=== PATIENT | male | born 1950 | race Caucasian/White ===

== ENCOUNTER 2016-12-06 12:09 | Inpatient (IN) | payer MEDICARE ==
--- NOTE | ~2016-12-06 | CN ---
Consultation Report [facility] [address] [place]. [address] NAME: ROBERTA HOLDEN : 50 STATUS : ADM Letty PAT#: [id number] AGE: 66 ADM/REG DATE : 12/06/16 MR#: [id number] REPORT SERV DATE: 12/07/16 DICTATED BY: DATE: REPORT STATUS : Draft TRANSCRIBED BY: MODL DATE: 12/07/16 NEUROLOGY CONSULTATION DATE OF CONSULTATION: 12/07/2016 REASON FOR CONSULT: Vision difficulties and concern for stroke. HISTORY OF PRESENT ILLNESS: This is a 66-year-old male who presented to [facility] on 12/06/2016 secondary to persistent vision difficulties with the patient having difficulties with left visual field deficit. The patient's symptoms started on 12/03/2016 and since then has remained stable. The patient has had an ophthalmology evaluation with the patient told not to have any retinal issues. The patient otherwise denies any dysarthria, dysphagia, language difficulties, or numbness. The patient denies any focal weakness, but does report gait abnormality secondary to cannot see out of the left side. As a result, the patient keeps on walking into things. The patient does report similar events roughly 1 month ago with the patient was driving down to [place], noticed similar symptoms that lasted several minutes and spontaneously resolved. The patient otherwise denies any recent illness, fever, chills, nausea, vomiting, chest pain, or shortness of breath. The patient has been on chronic blood pressure medication, otherwise, denies taking any other medications at home, does not usually take any aspirin at home. The patient denies any blood pressure medication adjustment or any other medication adjustment. PAST MEDICAL HISTORY: The patient's past medical history is significant for hypertension. The patient denies history of previous stroke, cardiac disease, or known history of diabetes or cholesterol issues. FAMILY HISTORY: Significant for heart disease in both the patient's brother as well as father with the patient's brother noted to have coronary artery disease in his 40s. SOCIAL HISTORY: Denies tobacco or recreational drug usage. The patient, however, does have a history of alcohol usage with the patient drinking roughly 5 to 7 bottles of beers per day. The patient denies any withdrawal type of symptoms with abrupt alcohol cessation. REVIEW OF SYSTEMS: Negative except for those mentioned in the HPI. ALLERGIES: THE PATIENT REPORTS NO KNOWN DRUG ALLERGIES. HOME MEDICATIONS: Consist of benazepril 40 mg p.o. daily. PHYSICAL EXAMINATION: VITAL SIGNS: At the time of evaluation, the patient overnight was noted to have vital signs with T-max of 98.4, heart rate of 54 to 86, respirations of 15 to 26, and blood pressure of 114 to 139 over 69 to 84. Consultation Report [facility] [id number] [place]. [address] NAME: ROBERTA HOLDEN : 50 STATUS : ADM Letty PAT#: [id number] AGE: 66 ADM/REG DATE : 12/06/16 MR#: [id number] REPORT SERV DATE: 12/07/16 DICTATED BY: DATE: REPORT STATUS : Draft TRANSCRIBED BY: MODL DATE: 12/07/16 GENERAL: The patient is well developed, well nourished, in no acute distress. CARDIOVASCULAR: Regular rate and rhythm. No carotid bruits were otherwise auscultated. PULMONARY: Examination was clear to auscultation bilaterally. NEUROLOGICAL: Generally, the patient is alert, oriented to person, place, year, and month. Follows simple and 2-step commands. Intact registration. Mild difficulties with recall. Intact attention span at the time of evaluation. No dysarthria. No aphasia. Cranial nerves 2 through 12, pupils equal, round, and reactive to light. Extraocular eye movement was noted to be intact. The patient was noted to have left visual field deficits in the left eye otherwise symmetrical facial expression and sensation. Midline tongue. Normal palatal movement. Normal hearing. The patient demonstrated 5/5 bilateral upper and lower extremity strength. No pronator drift was otherwise appreciated. Symmetrical sensation bilateral upper extremity, 5/5 bilateral lower extremity strength. Symmetrical sensation bilateral lower extremity. Deep tendon reflex was 1+ throughout. Downgoing toe on bilateral plantar reflexes. Normal rfidtp-fk-guxd examination without ataxia. Normal stable gait and station. LABORATORY STUDIES: Demonstrated white blood cell count of 8.0, hemoglobin of 15.9, hematocrit of 47.5, and platelet count of 215. Chemistry panel, sodium 140, potassium 4.3, chloride 102, bicarb 28, BUN of 19, creatinine of 1.02, glucose of 205, calcium of 8.3, and magnesium of 2.4. Serum cholesterol of 263, HDL of 50, and triglyceride of 450. Folate level of 17.7. Vitamin B12 level of 443. Hemoglobin A1c of 9.2. Serum TSH of 2.69, free T4 of 0.95. Urinalysis demonstrated negative leukocyte esterase, negative nitrite. CT scan of the brain demonstrated hypoattenuation in the right occipital area. Concern for possible subacute stroke with MRI of the brain demonstrated an embolic-appearing right LANG PATH THERAPIST territory stroke with the patient also noted to have involvement in the right basal ganglia in subcortical area and posterior limb of internal capsule. No hemorrhage was otherwise noted. MRA of the head and neck was reviewed, no clear internal carotid artery stenosis was seen; however, the patient was noted to have vertebral artery arthrosclerotic diseases. MRI and MRA report is currently pending. Echocardiogram demonstrated no apical thrombus. IMPRESSION: 1. Right LANG PATH THERAPIST embolic stroke with basal ganglia as well as the posterior limb of internal capsule involvement. MRA of the brain demonstrated vertebral artery atherosclerotic diseases but official report is pending. We will place the patient on increased dosage of aspirin 325 mg p.o. daily as well as addition of Plavix 75 mg p.o. daily. We will continue Lipitor 80 mg p.o. daily for maximum medical therapy. The patient's current NIH stroke scale is 1 with the symptoms started on 12/03/2016, reports the symptom has been stable secondary to the patient's difficulty walking due to vision difficulties/abnormalities. We will obtain PT/OT consultation. Secondary to the patient's vision abnormalities, we are recommending no driving until symptoms improving. 2. Newly diagnosed diabetes. Diabetic education and management as per hospitalist. 3. Dyslipidemia. We will continue Lipitor 80 mg p.o. at bedtime. RECOMMENDATIONS: Consultation Report [address] [place]. [address] NAME: ROBERTA HOLDEN : 50 STATUS : ADM Letty PAT#: [id number] AGE: 66 ADM/REG DATE : 12/06/16 MR#: [id number] REPORT SERV DATE: 12/07/16 DICTATED BY: DATE: REPORT STATUS : Draft TRANSCRIBED BY: RAMSES DATE: 12/07/16 1. PT/OT. 2. Increase aspirin to 325 mg p.o. daily. 3. Plavix 75 mg p.o. daily. 4. Lipitor 80 mg p.o. daily. 5. Diabetes management as per hospitalist. 6. No driving. 7. We will follow up MRA report. [facility]/MODL auri Barbosa MD / [id number] CC: Tonio Bunn M.D.
--- NOTE | ~2016-12-06 | DS ---
Discharge Summary [facility] [address] [place]. [address] NAME: ROBERTA HOLDEN : 50 STATUS : DIS IN PAT#: [id number] AGE: 66 ADM/REG DATE : 12/07/16 MR#: [id number] REPORT SERV DATE: 12/10/16 DICTATED BY: DATE: REPORT STATUS : Draft TRANSCRIBED BY: MODL DATE: 12/08/16 ADMISSION DATE: 12/06/2016 DISCHARGE DATE: 12/08/2016 DISCHARGE DIAGNOSES: 1. Right posterior cerebral artery embolic stroke. 2. Left-sided hemianopsia related to number one. 3. Hypertension. 4. ETOH abuse. 5. Hyperlipidemia. 6. Diabetes mellitus, type 2 with a hemoglobin A1c of 9.2. CONSULTING PHYSICIANS: Include Dr. Amauri Barbosa with Neurology. DISCHARGE MEDICATIONS: Include aspirin 325 mg p.o. daily, Lipitor 80 mg p.o. at bedtime, Lotensin 40 mg p.o. daily, Plavix 75 mg p.o. daily, multivitamin one tablet p.o. daily, Glucophage 500 mg p.o. b.i.d.. IMAGING: Includes a CT of the brain without contrast showed no acute intracranial abnormality. It did show some chronic microvascular white matter ischemic changes and minimal old lacunar infarcts and calcific atherosclerosis. Chest x-ray PA and lateral was performed which was normal. An MRI of the brain was performed that demonstrated a small seven millimeter acute ischemic infarct in the right thalamus as well as a cluster of small two to five millimeter acute ischemic infarcts in the medial right occipital lobe. These are in the area of the visual cortex and probably account for the reported visual disturbances. It also noted a small old lacunar infarct in the left thalamus and small old infarct in the inferior left cerebellar hemisphere. It also noted mild to moderate deep white matter chronic microvascular ischemic changes. An MRI of the head and neck were performed with contrast which showed a short segment of mild irregular atherosclerotic change in the mid right posterior cerebral artery. The [place] of [place] was unremarkable. MRI of the neck did not demonstrate significant atherosclerotic plaque or stenosis in the carotid arteries. There is a probable developmental variant asymmetric small caliber to the V4 segment of the left vertebral artery. Otherwise, the vertebral arteries demonstrated normal caliber and antegrade flow. Transthoracic echocardiogram was performed which showed normal left ventricular systolic function with an estimated ejection fraction of 55% to 60%. mild diastolic dysfunction was noted. Normal right ventricular chamber size and systolic function. No significant valvular regurgitation or stenosis was noted. For full H and P, please refer to Dr. Levi Roche's dictation on 12/06/2016. Please also see Dr. Amauri Barbosa's consultation dictation on 12/07/2016. HOSPITAL COURSE/PROBLEM LIST: Discharge Summary [facility] [address] [place] [address] NAME: ROBERTA HOLDEN : 50 STATUS : DIS IN PAT#: [id number] AGE: 66 ADM/REG DATE : 12/07/16 MR#: [id number] REPORT SERV DATE: 12/10/16 DICTATED BY: DATE: REPORT STATUS : Draft TRANSCRIBED BY: MODL DATE: 12/08/16 1. Right PATIENT AMBASSADOR stroke. I will discharge the patient on aspirin, Plavix, and Lipitor per Dr. Barbosa's recommendations. He had a physical therapy evaluation, though they did not recommend further physical therapy. An OT evaluation cannot be performed today. The patient requested to go home. After discussing this with Dr. Barbosa, we decided that we can set him up for an outpatient occupational therapy evaluation if needed. Hopefully, his left-sided hemianopsia will resolve. No driving at this time. 2. Hypertension. This has been controlled during the patient's hospital stay. I will continue his Lotensin 40 mg p.o. daily that he has been taking for years. 3. ETOH abuse. Alcohol cessation was discussed at length with the patient as well as possible treatment options. The patient states that he will quit drinking, he has done so in the past and has not had a problem. 4. Hyperlipidemia. As mentioned above, I will continue the patient on Lipitor 80 mg p.o. daily. His total cholesterol was 263, HDL cholesterol 50, non-HDL cholesterol 213, cholesterol HDL ratio was 5.3, and triglycerides were 450. Dietary changes were also discussed at length with this patient, who seems receptive to changing his lifestyle and his diet. His agree she is diabetic and they both state that they will start a new diabetic diet together and also exercise. 5. Diabetes mellitus, type 2. This is a new diagnosis for Mr. Holden. His hemoglobin A1c was 9.2. I explained this new diagnosis to Mr. Holden at length as well as reason for metformin therapy as well as lifestyle changes as mentioned above that will help him control his blood sugar. At this time, he does not have a primary care provider. He states that he will get one as soon as possible. I have recommended that he do this within the next week and be seen if possible. I will write him a prescription for metformin 500 mg p.o. b.i.d. this discharge with the discussion of followup lifestyle changes, diet changes, medication adherence, medication reconciliation, took greater than 30 minutes to perform. A[facility]REA/RAMSES Lauro Fuentes NP / [id number] CC: Jody Alvarado MD Hany A. Naggar, MD
--- NOTE | ~2016-12-06 | HP ---
History And Physical [facility] [id number] [place]. [address] NAME: ROBERTA HOLDEN : 50 STATUS : ADM Letty PAT#: [id number] AGE: 66 ADM/REG DATE : 12/06/16 MR#: [id number] REPORT SERV DATE: 12/07/16 DICTATED BY: LEVI BURNS DATE: 12/06/16 REPORT STATUS : Draft TRANSCRIBED BY: RAMSES DATE: 12/06/16 DATE OF ADMISSION: 12/06/2016 CHIEF COMPLAINT: Left visual field loss. HISTORY OF PRESENT ILLNESS: This is a 66-year-old gentleman with medical history significant for hypertension who presented to the hospital with complaints of inability to see, the left visual field of his left eye, which started about three days ago. The patient reports that he was in his usual state of health, suddenly noticed progressive loss of vision of his left eye. The patient went to his primary tile layer helper who did an eye examination and noted that his retina was intact. The ophthalmology advised the patient to come to the hospital for evaluation of a possible stroke. The patient reports that the visual deficit has persisted since the last three days. There are also associated headaches. The headaches are about 3/10 in intensity, diffuse across his head. No associated slurred speech, weakness of any part of his extremities. He also reports associated unsteady gait when he walks if leans towards the left side. He denies any presyncopal palpitation or syncopal episodes. The patient denies any chest pain. No shortness of breath, no wheezing, no cough, no fever, no chills. PAST MEDICAL HISTORY: Hypertension. PAST SURGICAL HISTORY: None. ALLERGIES: NO KNOWN DRUG ALLERGIES. SOCIAL HISTORY: Drinks about four to five bottles of beer a day about four to five times a week. Denies tobacco use or illicit drug use. The patient is currently and lives with his . 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 MEDICATION: Benazepril 40 mg p.o. daily. FAMILY HISTORY: His brother of lung cancer. Father of MD at the age of 72. He has another brother who had coronary artery disease with CABG at the age of 42. REVIEW OF SYSTEMS: NEUROLOGIC: Reports headache. Denies any seizure-like activities. Denies any trauma to the head. HEENT: As per HPI. RESPIRATORY: Denies any cough. No shortness of breath. No wheezes. CARDIOVASCULAR: Denies any chest pain. Denies any palpitations. Denies any presyncopal. ABDOMEN: Denies any abdominal pain. No nausea. No vomiting. No jaundice. : Denies any frequency, urgency, or dysuria. MUSCULOSKELETAL: Denies any joints pain or muscle pain. ENDOCRINE: Denies any heat intolerance, cold intolerance, or excessive weight gain. SKIN: Denies any easy bruising, petechia, or rash. HEMATOLOGY: Denies any lymphadenopathy. Denies any bleeding disorders. History And Physical [address] [address] NAME: ROBERTA HOLDEN : 50 STATUS : ADM Letty PAT#: [id number] AGE: 66 ADM/REG DATE : 12/06/16 MR#: [id number] REPORT SERV DATE: 12/07/16 DICTATED BY: LEVI BURNS DATE: 12/06/16 REPORT STATUS : Draft TRANSCRIBED BY: RAMSES DATE: 12/06/16 PHYSICAL EXAMINATION: VITAL SIGNS: Blood pressure 121/65, temperature 98.6, pulse 67 beats per minute, respiratory rate 18 cycles per minute, saturating 97% on room air. GENERAL: Not in any acute distress. HEENT: Normocephalic, atraumatic. Pupils equal, round, and reactive. Extraocular muscle intact. Loss of vision in the left visual field of the left eye. NECK: Supple. No JVD. CHEST: Equal expansion, nontender. Lungs clear to auscultation bilaterally. No wheezes. No rhonchi. No crackles. CARDIOVASCULAR: Regular rate and rhythm. S1 and S2. No murmurs, no gallops, no rubs. ABDOMEN: Bowel sounds normoactive, soft, nontender. No palpably enlarged organomegaly. EXTREMITIES: No pitting edema. No cyanosis. NEUROLOGIC: Alert and oriented x3. Cranial nerve strength in all extremities 5/5. Normal reflexes. No dysdiadochokinesia. Normal kheyur-qk-enuc test. Normal gait. Negative Romberg sign. LABORATORY DATA: 1. Chemistry: Sodium 140, potassium 4.0, chloride 101, bicarb 30, creatinine 1.10, BUN 21, glucose 277. Calcium 9.1, total protein 7.5, albumin 3.9. Total bilirubin is 0.9, alkaline phosphatase 79, ALT 38, AST 28. 2. Hematology: WBC 9.0, hemoglobin 17.2, hematocrit 51.7, platelets 231. INR 0.9. PT 12.8. 3. Lipid profile: Cholesterol 263, HDL 50, non-HDL 213, triglyceride 415, troponin less than 0.02, TSH 2.69, T4 0.9. 4. CT scan of the brain without contrast impression:. a. No acute intracranial abnormality. b. Chronic microvascular white matter ischemic changes. Minimal old lacunar infarct. Calcific atherosclerosis. SUMMARY: This is a 66-year-old male with medical history significant for hypertension who presented to the hospital with left hemianopsia concerning for possible cerebrovascular accident. ASSESSMENT AND PLAN: 1. Left hemianopsia. Given the patient's presentation and risk factors, there is significant concern for possible CVA as a possible etiology of patient's left hemianopsia. At this time, there is no evidence of active bleed on CT scan of the brain. The patient presented outside the tPA window. We will order an MRI/MRA of the brain, head, and neck. We will order an echocardiogram. We will also order an HbA1c, check the patient's folate and vitamin B12. The patient will be placed on cardiac tele. Neurology will be consulted for expected management. We will start the patient on aspirin, statin, and continue the patient on blood pressure medication. 2. Hypertension: We would restart the patient's blood pressure medication and continue to monitor. 3. Admission status: Observation. Admission disposition: CDU, sent. 4. Code status. Full code. History And Physical [address] [address] NAME: ROBERTA HOLDEN : 50 STATUS : ADM Letty PAT#: [id number] AGE: 66 ADM/REG DATE : 12/06/16 MR#: [id number] REPORT SERV DATE: 12/07/16 DICTATED BY: LEVI BURNS DATE: 12/06/16 REPORT STATUS : Draft TRANSCRIBED BY: MODL DATE: 12/06/16 5. Deep venous thrombosis prophylaxis, heparin subcutaneous. IOO/MODL Levi Burns MD / [id number]
[2016-12-06 11:43] LABS: BASOPHILS 0.7 %; BASOPHILS ABSOLUTE 0.06 10/3/uL (0.0-0.16); EOSINOPHILS 1.9 %; EOSINOPHILS ABSOLUTE 0.17 10/3/uL (0.0-0.53); ER CBC TAT 0 Hrs 05 Mins; HEMATOCRIT 51.7 % (40.0-51.0); HEMOGLOBIN 17.2 g/dL (13.6-17.8); IMMATURE GRANULOCYTES 0.4 %; IMMATURE GRANULOCYTES ABSOLUTE 0.04 10/3/uL (0.0-0.11); LYMPHOCYTES 24.3 %; LYMPHOCYTES ABSOLUTE 2.18 10/3/uL (0.67-4.30); MANUAL DIFF NO %; MEAN CORPUS HGB CONC 33.3 g/dL (32.0-36.0); MEAN CORPUSCULAR HEMOGLOB 31.2 pg (26.0-34.0); MEAN CORPUSCULAR VOLUME 93.8 fL (80-100); MEAN PLATELET VOLUME 10.7 fL (9.2-13.0); MONOCYTES 8.6 %; MONOCYTES ABSOLUTE 0.77 10/3/uL (0.21-1.20); NEUTROPHILS 64.1 %; NEUTROPHILS ABSOLUTE 5.76 10/3/uL (2.02-8.40); PLATELET COUNT 231 10/3/uL (150-400); RBC DISTRIBUTION WIDTH 13.2 % (12.0-16.0); RED CELL COUNT 5.51 10/6/uL (4.7-6.1)
[2016-12-06 11:51] LABS: INTERNATIONAL NORMAL RATI 0.9 UNITS (-); PROTIME (NOT ORD) 12.5 SEC (12.0-14.5)
[2016-12-06 11:57] LABS: A/G RATIO 1.1 (0.7-1.9); ALBUMIN 3.9 G/DL (3.5-5.0); ALKALINE PHOSPHATASE 79 U/L (45-117); BUN (BLOOD UREA NITROGEN) 21 MG/DL (6-23); CALCIUM, SERUM 9.1 MG/DL (8.5-10.4); CHLORIDE, SERUM 101 MMOL/L (96-112); CO2 (CARBON DIOXIDE) 30 MMOL/L (24-34); GFR AFRICAN AMERICAN 81 ML/MIN (>=60); GFR NON AFRICAN AMERICAN 70 ML/MIN (>=60); GLOBULIN 3.6 G/DL (2.5-4.1); GLUCOSE, SERUM 277 MG/DL (60-99); SGOT(AST) 28 U/L (5-40); SGPT(ALT) 38 U/L (5-65); SODIUM, SERUM 140 MMOL/L (135-148); TOTAL BILIRUBIN 0.9 MG/DL (0-1.2); TOTAL PROTEIN 7.5 G/DL (6.0-8.5)
[2016-12-06 13:40] LABS: SED RATE 2 MM/HR (0-15)
[2016-12-06] MEDS ORDERED: LOTE40 PO (14:51)
[2016-12-06 21:57] LABS: CHOL/HDL RATIO(NOT ORDER) 5.3 (0-5); CHOLESTEROL 263 MG/DL (< 200); CPK 70 U/L (0-200); FREE T4 0.95 NG/DL (0.76-1.46); HDL CHOLESTEROL 50 MG/DL (> 39); NON-HDL CHOLESTEROL 213 MG/DL (< 160); PHOSPHORUS, SERUM 2.7 MG/DL (2.5-4.5); TRIGLYCERIDE 450 MG/DL (< 150); TROPONIN I <0.02 NG/ML (<0.05)
[2016-12-06 21:58] LABS: CK-MB 0.8 NG/ML; FOLATE 17.7 NG/ML (>5.2)
[2016-12-07 02:43] LABS: ASCORBIC ACID (UR NOT ORDER) NEG (NEG); BILIRUBIN, URINE NEGATIVE (NEG); KETONE, URINE NEGATIVE (NEG); LEUKOCYTE ESTERASE(NOT OR NEG (NEG); WBC (NOT ORDERED) (RFLEX) < 1 (0-5)
[2016-12-07 05:43] LABS: BASOPHILS 0.9 %; BASOPHILS ABSOLUTE 0.07 10/3/uL (0.0-0.16); EOSINOPHILS 2.5 %; HEMATOCRIT 47.5 % (40.0-51.0); HEMOGLOBIN 15.9 g/dL (13.6-17.8); IMMATURE GRANULOCYTES 0.4 %; IMMATURE GRANULOCYTES ABSOLUTE 0.03 10/3/uL (0.0-0.11); LYMPHOCYTES 28.7 %; LYMPHOCYTES ABSOLUTE 2.28 10/3/uL (0.67-4.30); MEAN CORPUS HGB CONC 33.5 g/dL (32.0-36.0); MEAN CORPUSCULAR HEMOGLOB 30.8 pg (26.0-34.0); MEAN CORPUSCULAR VOLUME 91.9 fL (80-100); MEAN PLATELET VOLUME 10.1 fL (9.2-13.0); MONOCYTES 10.4 %; MONOCYTES ABSOLUTE 0.83 10/3/uL (0.21-1.20); NEUTROPHILS 57.1 %; NEUTROPHILS ABSOLUTE 4.54 10/3/uL (2.02-8.40); PLATELET COUNT 215 10/3/uL (150-400); RBC DISTRIBUTION WIDTH 13.6 % (12.0-16.0); RED CELL COUNT 5.17 10/6/uL (4.7-6.1)
[2016-12-07 05:44] LABS: MANUAL DIFF NO %
[2016-12-07 06:03] LABS: ALBUMIN 3.4 G/DL (3.5-5.0); BUN (BLOOD UREA NITROGEN) 19 MG/DL (6-23); CALCIUM, SERUM 8.3 MG/DL (8.5-10.4); CHLORIDE, SERUM 102 MMOL/L (96-112); CO2 (CARBON DIOXIDE) 28 MMOL/L (24-34); CPK 51 U/L (0-200); CREATININE 1.02 MG/DL (0.70-1.30); GFR AFRICAN AMERICAN 88 ML/MIN (>=60); GFR NON AFRICAN AMERICAN 76 ML/MIN (>=60); PHOSPHORUS, SERUM 2.9 MG/DL (2.5-4.5); POTASSIUM, SERUM 4.3 MMOL/L (3.5-5.3); SODIUM, SERUM 140 MMOL/L (135-148); TROPONIN I <0.02 NG/ML (<0.05)
[2016-12-07 06:05] LABS: CK-MB < 0.5 NG/ML; GLUCOSE, SERUM 205 MG/DL (60-99)
[2016-12-07 15:47] LABS: CPK 64 U/L (0-200); TROPONIN I <0.02 NG/ML (<0.05)
[2016-12-07 15:48] LABS: CK-MB 0.7 NG/ML
[2016-12-08 04:48] LABS: BASOPHILS 0.8 %; BASOPHILS ABSOLUTE 0.06 10/3/uL (0.0-0.16); EOSINOPHILS ABSOLUTE 0.22 10/3/uL (0.0-0.53); HEMOGLOBIN 16.2 g/dL (13.6-17.8); IMMATURE GRANULOCYTES 0.7 %; IMMATURE GRANULOCYTES ABSOLUTE 0.05 10/3/uL (0.0-0.11); LYMPHOCYTES 37.5 %; LYMPHOCYTES ABSOLUTE 2.72 10/3/uL (0.67-4.30); MEAN CORPUS HGB CONC 33.8 g/dL (32.0-36.0); MEAN CORPUSCULAR HEMOGLOB 30.9 pg (26.0-34.0); MEAN CORPUSCULAR VOLUME 91.6 fL (80-100); MEAN PLATELET VOLUME 10.6 fL (9.2-13.0); MONOCYTES 10.3 %; MONOCYTES ABSOLUTE 0.75 10/3/uL (0.21-1.20); NEUTROPHILS 47.7 %; NEUTROPHILS ABSOLUTE 3.45 10/3/uL (2.02-8.40); PLATELET COUNT 208 10/3/uL (150-400); RBC DISTRIBUTION WIDTH 13.5 % (12.0-16.0); RED CELL COUNT 5.24 10/6/uL (4.7-6.1); WHITE BLOOD CELLS 7.3 10/3/uL (4.5-10.5)
[2016-12-08 04:53] LABS: MANUAL DIFF NO %
[2016-12-08 05:01] LABS: BUN (BLOOD UREA NITROGEN) 19 MG/DL (6-23); CALCIUM, SERUM 8.3 MG/DL (8.5-10.4); CHLORIDE, SERUM 105 MMOL/L (96-112); CO2 (CARBON DIOXIDE) 26 MMOL/L (24-34); CREATININE 1.04 MG/DL (0.70-1.30); GFR AFRICAN AMERICAN 86 ML/MIN (>=60); GFR NON AFRICAN AMERICAN 74 ML/MIN (>=60); GLUCOSE, SERUM 204 MG/DL (60-99); POTASSIUM, SERUM 3.9 MMOL/L (3.5-5.3); SODIUM, SERUM 140 MMOL/L (135-148)
[2016-12-08] MEDS ORDERED: PLAVIX PO (15:15)
[2016-12-08] MEDS ORDERED: GLUCPH PO (15:15)
[2016-12-08] MEDS ORDERED: LIPITOR80 MG (15:16)
[2016-12-08] MEDS ORDERED: ASA5GR (15:16)
== END 2016-12-08 15:33 | disposition home or self-care (01) | DRG 66 ==
LOC: ER 12:09 → CDU1 18:55
PROVIDERS: Emergency Medicine; Hospitalist; Internal Medicine; Nurse Practitioner Acute Care
DX: I63.441 Cerebral infarction due to embolism of right cerebellar artery (principal); I10 Essential (primary) hypertension; H54.62 Unqualified visual loss, left eye, normal vision right eye; E11.9 Type 2 diabetes mellitus without complications; F10.10 Alcohol abuse, uncomplicated; E78.5 Hyperlipidemia, unspecified; Z82.49 Family history of ischemic heart disease and other diseases of the circulatory system
CPT/HCPCS: 70450; 70544; 70548; 70551-52; 71020; 80048; 80053; 80061; 80069; 81001; 82550; 82553; 82607; 82746; 82962; 83036; 83735; 84100; 84439; 84443; 84484; 85025; 85610; 85652; 93005; 93306; 97161-GP; 99285; A9270-GY; A9577; G8978-CH-GP; G8979-CH-GP; G8980-CH-GP; J3411